=== PATIENT | male | born 1990 | race Two or more races ===

== ENCOUNTER 2017-06-23 14:38 | Emergency (ER) | payer OTHER ==
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
[2017-06-23 14:50] VITALS: BP 123/70
== END 2017-06-23 15:20 | disposition home or self-care (01) ==
LOC: ER 14:38
DX: R41.82 Altered mental status, unspecified (principal)
CPT/HCPCS: 82962; 99284